=== PATIENT | female | born 1995 | race Caucasian/White ===

== ENCOUNTER → 2018-11-27 08:54 | Outpatient (CLI) | payer OTHER, MEDICAID, SELFPAY ==
[2018-11-27 10:26] LABS: Alanine Aminotransferase 27 IU/L (9-52); Albumin 4.1 g/dL (3.5-5.0); Albumin Globulin Ratio 1.4 (1.0-2.8); Alkaline Phosphatase 131 U/L (38-126); Aspartate Aminotransferase 28 IU/L (14-36); BUN Creatinine Ratio 21.4 (6-22); Bilirubin Total 0.2 mg/dL (0.2-1.3); Blood Urea Nitrogen 15 mg/dL (7-17); Calcium 9.2 mg/dL (8.4-10.2); Carbon Dioxide 26 mmol/L (22-32); Chloride 102 mmol/L (98-107); Estimated Glomerular Filt Rate > 60.0 mL/min (>60); Glucose 102 mg/dL (70-100); HEMOLYSIS < 15 (0-50); Potassium 5.1 mmol/L (3.4-5.1); Sodium 139 mmol/L (137-145); Total Protein 7.1 g/dL (6.3-8.2)
[2018-11-27 11:15] LABS: Hep C Virus Ab w/Reflex Quant NEGATIVE s/c (NEGATIVE)
[2018-12-01 16:16] LABS: Hepatitis A Antibody Total Reactive (Nonreactive); Hepatitis B Surf AB Imm QUANT < 5 mIU/mL (> 9)
== END ==
PROVIDERS: PCP Family Medicine; Visit Provider Family Medicine
DX: Z51.81 Encounter for therapeutic drug level monitoring (principal); F11.20 Opioid dependence, uncomplicated; Z11.59 Encounter for screening for other viral diseases
CPT/HCPCS: 36415; 80053; 86317; 86708; 86803